=== PATIENT | male | born 1970 | race African-American/Black ===

== ENCOUNTER 2018-12-20 20:08 | Emergency (ER) | payer SELFPAY ==
[~2018-12-20] VITALS: Ht 185.4 cm; Wt 132.0 kg
[2018-12-20 21:39] LABS: HEMATOCRIT. 33.3 % (42.0-52.0); HEMOGLOBIN. 10.4 g/dL (14.0-18.0); MEAN CORPUSCULAR HEMOGLOBIN 23.9 pg (28.0-32.0); MEAN CORPUSCULAR VOLUME 76.6 fL (80.0-94.0); MEAN PLATELET VOLUME 7.3 fl (7.4-10.4); PLATELET 532 x1000/uL (130-400); RED BLOOD CELL COUNT 4.35 mill/uL (4.7-6.1); RED CELL DISTRIBUTION WIDTH 15.1 % (11.6-14.6)
[2018-12-20 21:43] LABS: CHLORIDE 99 mEq/L (98-107)
[2018-12-20 22:07] LABS: PLATELET ESTIMATE INCREASED
[2018-12-20 23:33] VITALS: BP 134/73
== END 2018-12-20 23:36 | disposition home or self-care (01) ==
LOC: ER 20:08
DX: E11.649 Type 2 diabetes mellitus with hypoglycemia without coma (principal); Z79.4 Long term (current) use of insulin; D72.829 Elevated white blood cell count, unspecified; I10 Essential (primary) hypertension
CPT/HCPCS: 36415; 82962; 99283